=== PATIENT | male | born 1975 | race Caucasian/White ===

== ENCOUNTER 2024-06-07 15:37 | Emergency (ER) | payer SELFPAY ==
[2024-06-07] MEDS ORDERED: Benzonatate 100 MG Cap ONE (16:30)
[2024-06-07] MEDS ORDERED: Azithromycin 250 MG Tab ONE (16:30)
== END 2024-06-07 16:43 | disposition home or self-care (01) ==
LOC: LB.ED 15:37
DX: J18.9 Pneumonia, unspecified organism (principal); Z79.4 Long term (current) use of insulin; Z79.84 Long term (current) use of oral hypoglycemic drugs
CPT/HCPCS: 82947; 99284; A9270